=== PATIENT | female | born 1995 | race Asian ===

== ENCOUNTER 2024-04-08 23:17 | Emergency (ER) | payer BC ==
[2024-04-09] MEDS ORDERED: Ketorolac Tromethamine 30 MG (1 mL) VIAL ONE (00:25)
== END 2024-04-09 03:31 | disposition short-term general hospital (02) ==
LOC: ERS 23:17
DX: R10.32 Left lower quadrant pain (principal); Z79.899 Other long term (current) drug therapy; Z55.6 Problems related to health literacy
CPT/HCPCS: 76856; J1885